=== PATIENT | female | born 1975 | race African-American/Black ===

== ENCOUNTER 2021-06-15 22:31 | Emergency (ER) | payer OTHER ==
[~2021-06-15] VITALS: Ht 175.3 cm; Wt 100.0 kg
[2021-06-16] MEDS ORDERED: HYDROCODONE/ACETAMINOPHEN 5/325MG TABLET PO ONE
[2021-06-16] MEDS ORDERED: KETOROLAC 60MG/2ML VIAL IM ONE
[2021-06-16 00:27] LABS: BASOPHILS % 0.6 % (0.0-2.0); EOSINOPHILS % 0.2 % (0.0-5.0); HEMATOCRIT. 37.2 % (36.0-48.0); HEMOGLOBIN. 12.6 g/dL (12.0-16.0); LYMPHOCYTES % 24.5 % (20.0-50.0); MEAN CORPUSCULAR HEMOGLOBIN 29.3 pg (28.0-32.0); MEAN CORPUSCULAR VOLUME 86.6 fL (81.0-99.0); MEAN PLATELET VOLUME 9.3 fl (7.4-10.4); MONOCYTES % 6.5 % (2.0-8.0); NEUTROPHILS % 68.2 % (40.0-76.0); PLATELET 233 x1000/uL (130-400); RED CELL DISTRIBUTION WIDTH 13.8 % (11.6-14.6)
[2021-06-16 00:38] LABS: HCG SCREEN NEGATIVE; PARTIAL THROMBOPLASTIN TIME 28.7 sec (23.4-31.0); PROTHROMBIN TIME 10.9 sec (9.6-11.0)
[2021-06-16 00:42] LABS: CHLORIDE 111 mEq/L (98-107)
[2021-06-16 00:54] LABS: CREATINE KINASE 279 IU/L (26-192)
[2021-06-16] MEDS ORDERED: IBUP-2028 MT (02:36)
[2021-06-16 03:20] VITALS: BP 147/68
== END 2021-06-16 03:37 | disposition home or self-care (01) ==
LOC: ER 22:31
DX: R25.2 Cramp and spasm (principal); R03.0 Elevated blood-pressure reading, without diagnosis of hypertension; E66.01 Morbid (severe) obesity due to excess calories; Z68.32 Body mass index [BMI] 32.0-32.9, adult
CPT/HCPCS: 36415; 80053; 82550; 83735; 84703; 85025; 85610; 85730; 93970; 96372; 99284; J1885